=== PATIENT | female | born 1955 | race Caucasian/White ===

== ENCOUNTER 2020-07-24 00:12 | Observation (INO) | payer MEDICARE ==
[2020-07-24 00:41] VITALS: BMI 41.3
[2020-07-24] MEDS ORDERED: Ondansetron ODT 4 MG TAB PO PRN (01:10)
[2020-07-24] MEDS ORDERED: Acetaminophen 325 MG TAB PO PRN (01:10)
[2020-07-24] MEDS ORDERED: Ondansetron PF 4 MG/2 ML Vial IVP PRN (01:10)
[2020-07-24 04:34] LABS: SARS-CoV-2 PCR by NAA Not Detected (NotDetected)
[2020-07-24 04:45] LABS: #Basophils 0.1 thou/uL (0.0-0.2); #Eosinphils 0.2 thou/uL (0.0-0.7); #Lymphocytes 1.5 thou/uL (1.20-3.40); #Monocytes 0.8 thou/uL (0.11-0.59); #Neutrophils 3.1 thou/uL (1.40-6.50); %Eosinophils 3.3 % (0.0-10.0); %Lymphocytes 26.7 % (21.0-51.0); %Monocytes 13.9 % (0.0-10.0); %Neutrophils 55.1 % (42.0-75.0); Hemoglobin 6.7 g/dL (12.0-16.0); Mean Corpuscular Hemoglobin 21.8 pg (27.0-31.0); Mean Corpuscular Volume 75.2 fL (78.0-98.0); Mean Platelet Volume 8.6 fL (7.4-10.4); Platelet Count 460 thou/uL (130-400); RBC Distribution Width 19.6 % (11.5-14.5); Red Blood Cell (RBC) Count 3.05 mill/uL (4.20-5.40); White Blood Cell (WBC) Count 5.7 thou/uL (4.8-10.8)
[2020-07-24 04:52] LABS: Anion Gap 15 mmol/L (10-20); BUN (Urea Nitrogen) 15 mg/dL (9.8-20.1); Calc. Creatinine Clearance 100 mL/min (70-130); Carbon Dioxide 21 mmol/L (23-31); Chloride 105 mmol/L (98-107); Glucose 99 mg/dL (80-115); Potassium 3.8 mmol/L (3.5-5.1); Sodium 137 mmol/L (136-145)
[2020-07-24] MEDS ORDERED: hydrALAZINE 20 MG/ML VIAL SLOW IVP PRN (04:53)
[2020-07-24] MEDS ORDERED: FLU VACC QS2020-21(65YR UP)/PF 240 MCG/0.7 ML SYRINGE IM ONE (09:00)
[2020-07-24] MEDS ORDERED: Non-Formulary Item 1 EACH (Levothyroxine Sodium [Levothyroxine] 137 MCG Capsule) PO SCH (09:00)
[2020-07-24] MEDS: Levothyroxine Sodium 25 MCG TAB PO SCH (09:49)
[2020-07-24] MEDS: Levothyroxine Sodium 112 MCG TAB PO SCH (09:49)
[2020-07-24] MEDS: Amlodipine 10 MG TAB PO SCH (09:50)
[2020-07-24] MEDS: Furosemide 20 MG TAB PO SCH (09:50)
[2020-07-24] MEDS ORDERED: GoLYTELY 4,000 ml Bottle PO SCH (17:00)
[2020-07-25 04:33] LABS: #Eosinphils 0.2 thou/uL (0.0-0.7); #Lymphocytes 1.4 thou/uL (1.20-3.40); #Monocytes 0.8 thou/uL (0.11-0.59); #Neutrophils 3.6 thou/uL (1.40-6.50); %Basophils 0.7 % (0.0-1.0); %Eosinophils 2.6 % (0.0-10.0); %Lymphocytes 23.1 % (21.0-51.0); %Monocytes 12.8 % (0.0-10.0); %Neutrophils 60.8 % (42.0-75.0); Hemoglobin 8.7 g/dL (12.0-16.0); Mean Corpuscular HGB CONC 30.6 g/dL (32.0-36.0); Mean Corpuscular Hemoglobin 23.7 pg (27.0-31.0); Mean Corpuscular Volume 77.4 fL (78.0-98.0); Mean Platelet Volume 8.3 fL (7.4-10.4); Platelet Count 417 thou/uL (130-400); RBC Distribution Width 18.6 % (11.5-14.5); Red Blood Cell (RBC) Count 3.68 mill/uL (4.20-5.40)
[2020-07-25 04:58] LABS: Iron 72 ug/dL (50-170); Iron Binding Capacity, Total 489 mcg/dL (265-497)
[2020-07-25 05:25] LABS: Ferritin 16.68 ng/mL (10-291)
[2020-07-25] MEDS ORDERED: Midazolam HCl 2 mg/2 ml Vial ONE (09:44)
[2020-07-25] MEDS ORDERED: Ketamine 50 MG/ML (10ML VIAL) ONE (09:44)
[2020-07-25] MEDS ORDERED: PROPOFOL 200 MG/20 ML VIAL ONE (10:03)
[2020-07-25] MEDS: Levothyroxine Sodium 25 MCG TAB PO SCH (11:48)
[2020-07-25] MEDS: Furosemide 20 MG TAB PO SCH (11:48)
[2020-07-25] MEDS: Levothyroxine Sodium 112 MCG TAB PO SCH (11:48)
[2020-07-25] MEDS: Amlodipine 10 MG TAB PO SCH (11:48)
[2020-07-25 15:30] VITALS: BP 122/80; TEMP 98
[2020-07-25] MEDS ORDERED: Acetaminophen/Codeine 30-300mg Tablet PO SCH (16:00)
== END 2020-07-25 17:06 | disposition home or self-care (01) ==
LOC: 2NO 00:12 → INTOOBSV 00:12
PROVIDERS: ADMIT Student in an Organized Health Care Education/Training Program; ATTEND Hospitalist
PROC: 30233N1 Transfusion of Nonautologous Red Blood Cells into Peripheral Vein, Percutaneous Approach (ICD-10-PCS; principal; 2020-07-24)
PROC: 0DB98ZX Excision of Duodenum, Via Natural or Artificial Opening Endoscopic, Diagnostic (ICD-10-PCS; 2020-07-25)
PROC: 0DB68ZX Excision of Stomach, Via Natural or Artificial Opening Endoscopic, Diagnostic (ICD-10-PCS; 2020-07-25)
PROC: 0DBK8ZZ Excision of Ascending Colon, Via Natural or Artificial Opening Endoscopic (ICD-10-PCS; 2020-07-25)
PROC: 0DBN8ZZ Excision of Sigmoid Colon, Via Natural or Artificial Opening Endoscopic (ICD-10-PCS; 2020-07-25)
PROC: 0DBH8ZZ Excision of Cecum, Via Natural or Artificial Opening Endoscopic (ICD-10-PCS; 2020-07-25)
DX: D50.9 Iron deficiency anemia, unspecified (principal); K22.70 Barrett's esophagus without dysplasia; K63.5 Polyp of colon; Z20.822 Contact with and (suspected) exposure to COVID-19; Z28.21 Immunization not carried out because of patient refusal; N18.9 Chronic kidney disease, unspecified; E03.9 Hypothyroidism, unspecified; K57.30 Diverticulosis of large intestine without perforation or abscess without bleeding; K44.9 Diaphragmatic hernia without obstruction or gangrene; I12.9 Hypertensive chronic kidney disease with stage 1 through stage 4 chronic kidney disease, or unspecified chronic kidney disease; Z79.899 Other long term (current) drug therapy; Z79.890 Hormone replacement therapy; Z98.51 Tubal ligation status; Z83.2 Family history of diseases of the blood and blood-forming organs and certain disorders involving the immune mechanism; K25.9 Gastric ulcer, unspecified as acute or chronic, without hemorrhage or perforation
CPT/HCPCS: 80048; 82607; 82728; 82746; 83540; 83550; 85025 ×2; 86850; 86900; 86901; 86920; 88305; P9016; U0003; U0005; 36415; 87635; J2250; J2704

== ENCOUNTER 2020-12-29 10:45 | Outpatient (CLI) | payer MEDICARE | END 2020-12-29 10:46 | disposition home or self-care (01) | LOC: TBSIIMAG 10:45 | PROVIDERS: ATTEND Nurse Practitioner Family | DX: M48.062 Spinal stenosis, lumbar region with neurogenic claudication (principal) | CPT/HCPCS: 72148 ==

== ENCOUNTER 2022-02-04 11:12 | Outpatient (CLI) | payer OTHER | END 2022-02-04 11:13 | disposition home or self-care (01) | LOC: BICMAMMO 11:12 | PROVIDERS: ATTEND Family Medicine | DX: Z12.31 Encounter for screening mammogram for malignant neoplasm of breast (principal); Z80.3 Family history of malignant neoplasm of breast; Z91.89 Other specified personal risk factors, not elsewhere classified | CPT/HCPCS: 77063; 77067 ==

== ENCOUNTER 2022-10-18 19:26 | Inpatient (IN) | payer MEDICARE ==
[2022-10-18] MEDS ORDERED: Ondansetron ODT 4 MG TAB PO PRN (23:21)
[2022-10-18] MEDS ORDERED: Ondansetron PF 4 MG/2 ML Vial IVP PRN (23:21)
[2022-10-18] MEDS ORDERED: Acetaminophen 325 MG TAB PO PRN (23:21)
[2022-10-18] MEDS ORDERED: Pantoprazole 40 MG VIAL IVP SCH (23:30)
[2022-10-19 01:02] LABS: Hemoglobin 6.7 g/dL (12.0-16.0)
[2022-10-19 02:20] LABS: #Eosinphils 0.2 thou/uL (0.0-0.7); #Monocytes 0.8 thou/uL (0.11-0.59); #Neutrophils 3.4 thou/uL (1.40-6.50); %Basophils 0.7 % (0.0-1.0); %Eosinophils 3.2 % (0.0-10.0); %Lymphocytes 24.1 % (21.0-51.0); %Monocytes 13.9 % (0.0-10.0); %Neutrophils 57.9 % (42.0-75.0); Hemoglobin 6.9 g/dL (12.0-16.0); Mean Corpuscular Hemoglobin 19.1 pg (27.0-31.0); Mean Platelet Volume 9.4 fL (7.4-10.4); Platelet Count 435 10x3/uL (130-400); RBC Distribution Width 22.4 % (11.5-14.5); Red Blood Cell (RBC) Count 3.62 mill/uL (4.20-5.40); White Blood Cell (WBC) Count 5.9 10x3/uL (4.8-10.8)
[2022-10-19 03:06] LABS: Mean Corpuscular HGB CONC 27.7 g/dL (32.0-36.0)
[2022-10-19 03:07] LABS: Mean Corpuscular Volume 68.8 fl (78.0-98.0)
[2022-10-19 03:14] LABS: Hemoglobin A1c 5.2 % (4.0-6.0)
[2022-10-19 03:17] LABS: Anion Gap 10 mmol/L (10-20); BUN (Urea Nitrogen) 21 mg/dL (9.8-20.1); Calc. Creatinine Clearance 0 mL/min (70-130); Calcium 9.7 mg/dL (7.8-10.44); Carbon Dioxide 30 mmol/L (23-31); Cardiac Risk 3.1 (Less than 4.5); Chloride 101 mmol/L (98-107); Cholesterol 152 mg/dl (< 200 Desired); Estimated GFR 46; Glucose 101 mg/dL (80-115); HDL Cholesterol 49 mg/dL (>60 Neg Risk); LDL Cholesterol, Calculated 90 mg/dL; Potassium 3.4 mmol/L (3.5-5.1); Sodium 138 mmol/L (136-145); Triglycerides 65 mg/dL (Less than 150)
[2022-10-19 04:51] VITALS: BMI 39.6
[2022-10-19] MEDS ORDERED: Levothyroxine Sodium 112 MCG TAB PO SCH (06:00)
[2022-10-19] MEDS ORDERED: Levothyroxine Sodium 25 MCG TAB PO SCH (06:00)
[2022-10-19] MEDS: Levothyroxine Sodium 125 MCG TAB PO SCH (06:06)
[2022-10-19] MEDS: Ferrous Sulfate 325 MG TAB PO SCH ×2 (08:55→22:22)
[2022-10-19] MEDS: Polyethylene Glycol 3350 17 GM Packet PO SCH (08:57)
[2022-10-19] MEDS ORDERED: Non-Formulary Item 1 EACH (Levothyroxine Sodium [Levothyroxine Sodium] 137 MCG Capsule) PO SCH (09:00)
[2022-10-19] MEDS ORDERED: Pantoprazole 40 MG VIAL IVP SCH (09:00)
[2022-10-19 10:23] LABS: Hemoglobin 9.1 g/dL (12.0-16.0)
[2022-10-19] MEDS: Acetaminophen/Codeine 30-300mg Tablet PO PRN ×2 (11:40→22:18)
[2022-10-19] MEDS ORDERED: GoLYTELY 4,000 ml Bottle PO SCH (17:00)
[2022-10-19] MEDS ORDERED: Non-Formulary Item 1 EACH (Gabapentin [Neurontin] 600 MG Tablet) PO SCH (21:00)
[2022-10-19] MEDS: Gabapentin 300 MG CAP PO SCH (22:20)
[2022-10-19] MEDS: Atorvastatin Calcium 40 MG TAB PO SCH (22:22)
[2022-10-19] MEDS: tiZANidine HCl 4 MG TAB PO SCH (22:23)
[2022-10-20 05:32] LABS: #Eosinphils 0.2 thou/uL (0.0-0.7); #Monocytes 0.7 thou/uL (0.11-0.59); #Neutrophils 3.7 thou/uL (1.40-6.50); %Basophils 0.7 % (0.0-1.0); %Eosinophils 3.8 % (0.0-10.0); %Lymphocytes 19.2 % (21.0-51.0); Hemoglobin 8.5 g/dL (12.0-16.0); Mean Corpuscular HGB CONC 28.3 g/dL (32.0-36.0); Mean Corpuscular Hemoglobin 20.1 pg (27.0-31.0); Mean Platelet Volume 9.1 fL (7.4-10.4); Platelet Count 447 10x3/uL (130-400); RBC Distribution Width 23.3 % (11.5-14.5); Red Blood Cell (RBC) Count 4.23 mill/uL (4.20-5.40); White Blood Cell (WBC) Count 5.7 10x3/uL (4.8-10.8)
[2022-10-20 05:35] LABS: Mean Corpuscular Volume 70.9 fl (78.0-98.0)
[2022-10-20 05:52] LABS: Anion Gap 12 mmol/L (10-20); BUN (Urea Nitrogen) 12 mg/dL (9.8-20.1); Calc. Creatinine Clearance 85 mL/min (70-130); Carbon Dioxide 29 mmol/L (23-31); Chloride 102 mmol/L (98-107); Estimated GFR 53; Glucose 86 mg/dL (80-115); Potassium 3.5 mmol/L (3.5-5.1); Sodium 139 mmol/L (136-145)
[2022-10-20] MEDS: Levothyroxine Sodium 125 MCG TAB PO SCH (07:32)
[2022-10-20] MEDS: Hydrochlorothiazide 25 MG TAB PO SCH ×2 (08:54→11:26)
[2022-10-20] MEDS: Losartan 25 MG TAB PO SCH ×2 (08:54→11:27)
[2022-10-20] MEDS: Amlodipine 10 MG TAB PO SCH ×2 (08:54→11:26)
[2022-10-20] MEDS: Ferrous Sulfate 325 MG TAB PO SCH ×3 (08:54→20:59)
[2022-10-20] MEDS: Gabapentin 300 MG CAP PO SCH ×3 (08:54→20:59)
[2022-10-20] MEDS: Polyethylene Glycol 3350 17 GM Packet PO SCH (08:55)
[2022-10-20] MEDS: tiZANidine HCl 4 MG TAB PO SCH ×3 (08:55→20:59)
[2022-10-20] MEDS ORDERED: ePHEDrine Sulfate 50 MG/10 ML VIAL ONE (09:21)
[2022-10-20] MEDS ORDERED: PROPOFOL 200 MG/20 ML VIAL ONE (09:21)
[2022-10-20] MEDS ORDERED: Lidocaine 1% PF 5 ML VIAL ONE (09:21)
[2022-10-20] MEDS: Acetaminophen/Codeine 30-300mg Tablet PO PRN ×2 (11:32→21:02)
[2022-10-20] MEDS: Atorvastatin Calcium 40 MG TAB PO SCH (22:20)
[2022-10-21 05:30] LABS: #Eosinphils 0.2 thou/uL (0.0-0.7); #Monocytes 0.8 thou/uL (0.11-0.59); #Neutrophils 5.3 thou/uL (1.40-6.50); %Basophils 0.4 % (0.0-1.0); %Eosinophils 2.4 % (0.0-10.0); %Lymphocytes 16.8 % (21.0-51.0); %Monocytes 10.7 % (0.0-10.0); %Neutrophils 69.6 % (42.0-75.0); Mean Corpuscular Volume 71.5 fl (78.0-98.0); Mean Platelet Volume 9.1 fL (7.4-10.4); Platelet Count 391 10x3/uL (130-400); Red Blood Cell (RBC) Count 4.04 mill/uL (4.20-5.40); White Blood Cell (WBC) Count 7.6 10x3/uL (4.8-10.8)
[2022-10-21 05:38] LABS: Hemoglobin 8.1 g/dL (12.0-16.0)
[2022-10-21 05:39] LABS: RBC Distribution Width 23.9 % (11.5-14.5)
[2022-10-21] MEDS: Levothyroxine Sodium 125 MCG TAB PO SCH (06:37)
[2022-10-21] MEDS: Gabapentin 300 MG CAP PO SCH (08:24)
[2022-10-21] MEDS: Losartan 25 MG TAB PO SCH (08:24)
[2022-10-21] MEDS: Ferrous Sulfate 325 MG TAB PO SCH (08:24)
[2022-10-21] MEDS: tiZANidine HCl 4 MG TAB PO SCH (08:25)
[2022-10-21] MEDS: Amlodipine 10 MG TAB PO SCH (08:25)
[2022-10-21] MEDS: Polyethylene Glycol 3350 17 GM Packet PO SCH (08:25)
[2022-10-21] MEDS: Hydrochlorothiazide 25 MG TAB PO SCH (08:25)
[2022-10-21 12:23] VITALS: BP 101/67; TEMP 98.1
== END 2022-10-21 14:29 | disposition home or self-care (01) | DRG 812 ==
LOC: NEURO 22:02 → OBSVTOIN 23:35
PROVIDERS: ADMIT Internal Medicine; ATTEND Internal Medicine
PROC: 30233N1 Transfusion of Nonautologous Red Blood Cells into Peripheral Vein, Percutaneous Approach (ICD-10-PCS; principal; 2022-10-19)
PROC: 0DB98ZX Excision of Duodenum, Via Natural or Artificial Opening Endoscopic, Diagnostic (ICD-10-PCS; 2022-10-20)
PROC: 0DB38ZX Excision of Lower Esophagus, Via Natural or Artificial Opening Endoscopic, Diagnostic (ICD-10-PCS; 2022-10-20)
PROC: 0DBP8ZZ Excision of Rectum, Via Natural or Artificial Opening Endoscopic (ICD-10-PCS; 2022-10-20)
DX: D50.9 Iron deficiency anemia, unspecified (principal); N17.9 Acute kidney failure, unspecified; K21.9 Gastro-esophageal reflux disease without esophagitis; N18.30 Chronic kidney disease, stage 3 unspecified; I12.9 Hypertensive chronic kidney disease with stage 1 through stage 4 chronic kidney disease, or unspecified chronic kidney disease; K22.70 Barrett's esophagus without dysplasia; K44.9 Diaphragmatic hernia without obstruction or gangrene; K57.30 Diverticulosis of large intestine without perforation or abscess without bleeding; K57.10 Diverticulosis of small intestine without perforation or abscess without bleeding; K62.1 Rectal polyp; Z79.899 Other long term (current) drug therapy; Z79.890 Hormone replacement therapy; G62.9 Polyneuropathy, unspecified; Z98.51 Tubal ligation status; Z91.148 Patient's other noncompliance with medication regimen for other reason
CPT/HCPCS: 36415; 36430; 70551; 80048; 80061; 83036; 84443; 85014; 85018; 85025; 86850; 86900; 86901; 88305; 88312; 88313; 93306; C9113; J2704; P9016

== ENCOUNTER 2022-11-11 12:55 | Outpatient (CLI) | payer MEDICARE | END 2022-11-11 12:56 | disposition home or self-care (01) | LOC: RAD 12:55 | PROVIDERS: ATTEND Physician Assistant Medical | DX: K22.70 Barrett's esophagus without dysplasia (principal); D50.9 Iron deficiency anemia, unspecified; M47.816 Spondylosis without myelopathy or radiculopathy, lumbar region; M16.0 Bilateral primary osteoarthritis of hip | CPT/HCPCS: 74018 ==

== ENCOUNTER 2022-12-31 08:07 | Outpatient (CLI) | payer MEDICARE | END 2022-12-31 08:08 | disposition home or self-care (01) | LOC: RAD 08:07 | PROVIDERS: ATTEND Physician Assistant Medical | DX: K44.9 Diaphragmatic hernia without obstruction or gangrene (principal); K31.89 Other diseases of stomach and duodenum | CPT/HCPCS: 74220 ==